=== PATIENT | male | born 1995 | race Hispanic/Latino ===

== ENCOUNTER 2017-05-26 06:44 | Day surgery (SDC) | payer MEDICAID, OTHER ==
[2017-05-26 07:05] VITALS: BMI 23.7
--- NOTE | 2017-05-26 08:10 | CP.SDSHP ---
Same Day Surgery H & P - History Proposed Procedure: L hand cyst excision Pre-Op Diagnosis: L hand cyst - Allergies Allergies: Allergies No Known Allergies Allergy (Verified 05/26/17 07:05) - Physical Exam General Appearance: NAD Vital Signs: Vital Signs 05/26/17 07:30 Temperature 97.4 F L Pulse Rate 59 L Respiratory 18 Rate Blood Pressure 113/66 O2 Sat by Pulse 96 Oximetry Mental Status: Alert & Oriented x3 Neuro: WNL Heart: WNL Lungs: WNL GI: WNL - {Optional Preform as Required} Abdomen: WNL Integument: Other (L hand cyst 1cm x1cm) Short Stay Discharge - Short Stay Discharge Admitting Diagnosis/Reason for Visit: L72.0 Disposition: HOME/ ROUTINE Referrals: FAMILY PROVIDER,NO [Primary Care Provider] - Dave Reddy MD [Staff Provider] - Follow-up: follow up with Dr. Reddy is 1 week to remove stitch. Ok to take shower Additional Instructions (Diet, Activity): resume regular diet
[2017-05-26] MEDS ORDERED: Lidocaine 2% w Epi 1:100,000 Inj IJ ONE (08:17)
[2017-05-26] MEDS ORDERED: Bupivacaine 0.5% Inj(30mL) ONE (08:17)
[2017-05-26] MEDS ORDERED: Lidocaine 1% Inj (20ml) ONE (08:17)
[2017-05-26] MEDS ORDERED: Lidocaine 1% Inj (20ml) IJ ONE (08:51)
[2017-05-26 09:02] VITALS: TEMP 98; O2SAT 100
[2017-05-26 09:07] VITALS: PULSE 120
[2017-05-26 09:08] VITALS: BP 118/66; RESP 20
--- NOTE | 2017-06-07 17:51 | OP ---
DATE OF OPERATION: 05/26/2017 OPERATION PERFORMED: Excision of cyst, left hand dorsum, 2 cm. SURGEON: Dave Reddy MD [employer]ES LEAD: . ANESTHESIA: Local anesthesia. PREOPERATIVE DIAGNOSIS: Sebaceous cyst, left hand. POSTOPERATIVE DIAGNOSIS: Sebaceous cyst, left hand. OPERATIVE PROCEEDINGS: Are as follows: The patient was taken to the operating room, placed supine on the operating table. The left hand was prepped and draped in a standard surgical fashion. 1% lidocaine with epinephrine was infiltrated to create a field block. A elliptical incision was made over the cyst, carried down through the skin subcutaneous tissues. The combination of retraction and blunt dissection was used as well as sharp dissection through nuclei of the cyst. The cyst was enucleated in its entirety . The skin was then closed using interrupted 4-0 Monocryl. The patient then had sterile dressings applied and was transported to recovery in satisfactory condition. Sponge, instruments, needle counts were correct at the end of the case. Dave Reddy MD
== END 2017-05-26 10:05 | disposition home or self-care (01) ==
LOC: H.OPSURG 06:44
PROVIDERS: ATTEND Surgery
DX: L72.0 Epidermal cyst (principal)